=== PATIENT | female | born 1970 | race Two or more races ===

== ENCOUNTER 2018-12-16 13:33 | Emergency (ER) | payer OTHER ==
[~2018-12-16] VITALS: Ht 157.5 cm; Wt 70.3 kg
--- NOTE | 2018-12-16 15:31 | NUR ---
Patient discharged to home in stable conditon with slow steady gait. Written and verbal after care instructions given to patient by MD himself. Patient verbalizes understanding & compliance of instructions.
== END 2018-12-16 15:33 | disposition home or self-care (01) ==
LOC: ER 13:36
DX: S82.842A Displaced bimalleolar fracture of left lower leg, initial encounter for closed fracture (principal); Z88.8 Allergy status to other drugs, medicaments and biological substances; X58.XXXA Exposure to other specified factors, initial encounter; Y93.89 Activity, other specified; Y92.89 Other specified places as the place of occurrence of the external cause; Y99.8 Other external cause status
CPT/HCPCS: 73610; A4663